=== PATIENT | female | born 2005 | race Caucasian/White ===

== ENCOUNTER 2025-06-27 22:37 | Observation (INO) | payer BC, SELFPAY ==
[2025-06-27 22:40] VITALS: BP 146/88; PULSE 88; RESP 16; TEMP 37.2; O2SAT 98; BMI 25.1
--- NOTE | 2025-06-27 22:54 | ED_ITS ---
HPI - Chest Pain General Date Seen: 06/27/25 <Sterling Mccabe DO - Last Filed: 06/27/25 23:59> Chief Complaint: Chest Pain <Sterling Mccabe DO - Last Filed: 06/27/25 23:59> Stated Complaint: chest pain <Sterling Mccabe DO - Last Filed: 06/27/25 23:59> Time Seen by Provider: 06/27/25 22:41 <Sterling Mccabe DO - Last Filed: 06/27/25 23:59> Source: patient <Sterling Mccabe DO - Last Filed: 06/27/25 23:59> Mode of arrival: ambulatory <Sterling Mccabe DO - Last Filed: 06/27/25 23:59> Limitations: no limitations <Sterling Mccabe DO - Last Filed: 06/27/25 23:59> History of Present Illness HPI narrative: Patient is a 19-year-old female presenting to emergency department for left mid axial rib pain around ribs 6 or 7. Pain 1st occurred Wednesday night around 03:00. She states she had sudden sharp pain that woke her up from sleep. Did not have any pain yesterday but then today has been having this pain all day. She states it has been gradually getting worse. States currently the pain is the worst it has been but does admit that she just got done with volleyball practice. States on Wednesday she did some moderate weightlifting and practice but she has not think she overly exerted herself. Has never had pain like this before. Pain is not radiate. Denies any tenderness to palpation but does state pain is worse when she rotates to the right or bends down. Does not have any pain with arm movement. Denies fevers, chills, midsternal chest pain, headache, vision changes, weakness, numbness, abdominal pain, back pain, dysuria, vaginal bleeding or discharge. Does states she has some shortness of breath associated with the pain. No history of blood clots. Denies recent travel, history of cancer, recent surgeries, hemoptysis, lower extremity swelling. Does states she is on control. <Sterling Menjivarleah - Last Filed: 06/27/25 23:59> Related Data Allergies/Adverse Reactions: Allergies Allergy/AdvReac Type Severity Reaction Status Date / Time No Known Drug Allergies Allergy Verified 06/28/25 00:18 <Sterling Mccabe DO - Last Filed: 06/27/25 23:59> Review of Systems Status of ROS Reports: 10 or more systems reviewed and unremarkable except as noted in History and below <Sterling Mccabe DO - Last Filed: 06/27/25 23:59> [facility] Social History: Social History Smoking Status: Never smoker Do you use any of these nicotine containing products: None Second hand tobacco smoke exposure: No How often do you have a drink containing alcohol: never How often do you have six or more drinks on one occasion: Never AUDIT-C Alcohol total score: 0 Non-prescribed substance use: denies use service: No <Sterling Mccabe DO - Last Filed: 06/27/25 23:59> Exam Narrative Exam Narrative: Const: Well-nourished, Well-developed, in mild distress Eyes: PERRL, no conjunctival injection, and symmetrical lids HENT: Atraumatic external nose and ears. Moist mucous membranes. Neck: Symmetric, trachea midline, No thyromegaly. CVS: RRR, No murmurs or gallops. Peripheral pulses 2+ and equal in all extremities RESP: Unlabored respiratory effort. Clear to auscultation bilaterally. GI: Nontender/Nondistended, No rebound or guarding. MSK:Extremities w/o deformity, Normal Active ROM, no tenderness to the mid axial region left Skin: Warm, Dry. No rashes or lesions. Neuro: Normal Muscle tone, No focal neurological deficits. Psych: Awake, Alert, & Oriented x3. Appropriate mood and affect. <Sterling Mccabe DO - Last Filed: 06/27/25 23:59> Const Vital Signs, click to edit/add: Vital Signs - 24 hr 06/27/25 22:40 Temperature 98.9 F Pulse Rate [Pulse Oximeter] 88 Respiratory Rate 16 Blood Pressure [Right Upper Arm] 146/88 H Pulse Oximetry 98 Oxygen Delivery Method Room Air <Sterling Mccabe DO - Last Filed: 06/27/25 23:59> Vital Signs - 24 hr 06/27/25 22:40 Temperature 98.9 F Pulse Rate [Pulse Oximeter] 88 Respiratory Rate 16 Blood Pressure [Right Upper Arm] 146/88 H Pulse Oximetry 98 Oxygen Delivery Method Room Air <Mary Soriano MD - Last Filed: 06/28/25 01:55> Course Course ED Course: Update: Dr. Soriano: I inherited care at the beginning of my shift. Patient awaiting results of CT angio. This does show bilateral pulmonary emboli, moderate load. There is some mild associated cardiac changes that would be suspicious for slight strain. This would not be a definitive way to test this. Some pulmonary necrosis noted in right lobe, associated with ischemic defect. Counseled patient on findings. She is on a combined oral contraceptive for menstrual management, this will need to be discontinued. She will need to transition on to a blood thinner, recommend Vazquez act. I do not Wanna start this at 1:00 a.m., as timing for her next dose will be quite tricky. Will start on a heparin drip, then transition on to Vazquez act. Discussed with hospitalist, she will assume care. At this time, there was no hypoxia, no signs of heart failure. Patient has not received lytics. Will need echo and venous Doppler ultrasounds of legs. Would recommend progesterone only OCP at discharge. Hospitalist to assume care. <Mary Soriano MD - Last Filed: 06/28/25 01:55> Vital Signs Vital signs: Initial Vital Signs Temperature 98.9 F 06/27/25 22:40 Temperature Source Temporal Artery Scan 06/27/25 22:40 Pulse Rate 88 06/27/25 22:40 Pulse Rhythm Regular 06/27/25 22:40 Respiratory Rate 16 06/27/25 22:40 Blood Pressure 146/88 H 06/27/25 22:40 Blood Pressure Mean 107 H 06/27/25 22:40 Blood Pressure Position Sitting 06/27/25 22:40 Pulse Oximetry 98 06/27/25 22:40 Oxygen Delivery Method Room Air 06/27/25 22:40 Vital Signs Temperature 98.9 F 06/27/25 22:40 Pulse Rate 88 06/27/25 22:40 Respiratory Rate 16 06/27/25 22:40 Blood Pressure 146/88 H 06/27/25 22:40 Pulse Oximetry 98 06/27/25 22:40 Oxygen Delivery Method Room Air 06/27/25 22:40 Temperature 98.9 F 06/27/25 22:40 Pulse Rate 88 06/27/25 22:40 Respiratory Rate 16 06/27/25 22:40 Blood Pressure 146/88 H 06/27/25 22:40 Pulse Oximetry 98 06/27/25 22:40 Oxygen Delivery Method Room Air 06/27/25 22:40 <Sterling Mccabe DO - Last Filed: 06/27/25 23:59> Initial Vital Signs Temperature 98.9 F 06/27/25 22:40 Temperature Source Temporal Artery Scan 06/27/25 22:40 Pulse Rate 88 06/27/25 22:40 Pulse Rhythm Regular 06/27/25 22:40 Respiratory Rate 16 06/27/25 22:40 Blood Pressure 146/88 H 06/27/25 22:40 Blood Pressure Mean 107 H 06/27/25 22:40 Blood Pressure Position Sitting 06/27/25 22:40 Pulse Oximetry 98 06/27/25 22:40 Oxygen Delivery Method Room Air 06/27/25 22:40 Vital Signs Temperature 98.9 F 06/27/25 22:40 Pulse Rate 88 06/27/25 22:40 Respiratory Rate 16 06/27/25 22:40 Blood Pressure 146/88 H 06/27/25 22:40 Pulse Oximetry 98 06/27/25 22:40 Oxygen Delivery Method Room Air 06/27/25 22:40 Temperature 98.9 F 06/27/25 22:40 Pulse Rate 88 06/27/25 22:40 Respiratory Rate 16 06/27/25 22:40 Blood Pressure 146/88 H 06/27/25 22:40 Pulse Oximetry 98 06/27/25 22:40 Oxygen Delivery Method Room Air 06/27/25 22:40 <Mary Soriano MD - Last Filed: 06/28/25 01:55> MDM - Chest Pain MDM Narrative Medical decision making narrative: Patient is a 19-year-old female presenting for left-sided mid axial chest pain. The differential diagnosis of chest pain is broad and includes common etiologies such as musculoskeletal strain, GERD, pneumonia, etc. More serious etiologies considered include PE, coronary artery disease, pneumothorax, aortic dissection, aortic aneurysm. She has a control so cannot be perked out. D-dimer ordered. Will order EKG troponin to look for cardiac abnormalities as this is on left side of her chest. Will order chest x-ray to look for signs of pneumonia or pneumothorax. She is otherwise appearing well my concern for or dissection or aortic aneurysm is low. Will order CBC, BMP, magnesium, viral swabs also. White count elevated at 15.80. Chest x-ray reviewed by myself and the radiologist shows an opacity left lower lung some consistent with the patient's pain is. This could be a pneumonia. Considering the elevated white blood cell count is very well could be pneumonia. D-dimer came back quite elevated at 4.67. Due to this I cannot use years criteria to rule out a PE. CTA will be ordered. <Sterling Mccabe DO - Last Filed: 06/27/25 23:59> Lab Data Attestation: I reviewed the patient's lab results. <Mary Soriano MD - Last Filed: 06/28/25 01:55> Labs: Lab Results 06/27/25 06/27/25 Range/Units 22:57 23:05 WBC 15.80 H (4.50-11.00) K/uL RBC 4.23 (4.00-5.20) m/uL Hgb 13.3 (12.0-16.0) gm/dL Hct 39.9 (33.0-51.0) % MCV 94 (80-100) fL MCH 31 (26-34) pg MCHC 33 (32-36) gm/dL RDW Coeff of Calvin 12.2 (11.5-15.5) % Plt Count 274 (140-440) K/uL Neut % (Auto) 81.5 H (42.0-72.0) % Lymph % (Auto) 8.2 L (20-44) % [place] % (Auto) 8.9 (0.0-11.0) % Eos % (Auto) 0.0 (0.0-7.0) % Baso % (Auto) 0.3 (0.0-3.0) % Neut # (Auto) 12.90 H (1.7-7.0) K/uL Lymph # (Auto) 1.30 (0.90-2.90) K/uL [place] # (Auto) 1.40 H (0.00-0.90) K/UL Eos # (Auto) 0.00 (0.00-0.50) K/uL Baso # (Auto) 0.00 (0.00-0.30) K/uL Abs Immat Gran (auto) 0.20 (0.00-0.30) K/uL Imm/Tot Granulo (auto) 1.1 % D-Dimer Quant (PE/DVT) 4.67 H (0.00-0.50) ug/ml Sodium 137 (135-149) mmol/L Potassium 4.7 (3.6-5.1) mmol/L Chloride 104 (96-114) mmol/L Carbon Dioxide 23 (20-32) mmol/L Anion Gap 10 (7-15) mEq/L BUN 19 (5-24) mg/dL Creatinine 1.1 (0.5-1.5) mg/dL Estimated Creat Clear 91.18 Estimated GFR 74 ml/min Glucose 92 (60-115) mg/dL Calcium 9.6 (8.4-10.6) mg/dL Magnesium 1.9 (1.5-2.6) mg/dL HCG, Qual Negative (Negative) SARS-CoV-2 (PCR) Negative SARS-CoV-2 (Negative) Influenza Type A (PCR) Negative PCR FLU A (Negative) Influenza Type B (PCR) Negative PCR FLU B (Negative) RSV (PCR) Negative PCR RSV (Negative) POC Troponin I 0.01 (0.01-0.04) ng/ml <Sterling Mccabe, DO - Last Filed: 06/27/25 23:59> Lab Results 06/27/25 06/27/25 Range/Units 22:57 23:05 WBC 15.80 H (4.50-11.00) K/uL RBC 4.23 (4.00-5.20) m/uL Hgb 13.3 (12.0-16.0) gm/dL Hct 39.9 (33.0-51.0) % MCV 94 (80-100) fL MCH 31 (26-34) pg MCHC 33 (32-36) gm/dL RDW Coeff of Calvin 12.2 (11.5-15.5) % Plt Count 274 (140-440) K/uL Neut % (Auto) 81.5 H (42.0-72.0) % Lymph % (Auto) 8.2 L (20-44) % [place] % (Auto) 8.9 (0.0-11.0) % Eos % (Auto) 0.0 (0.0-7.0) % Baso % (Auto) 0.3 (0.0-3.0) % Neut # (Auto) 12.90 H (1.7-7.0) K/uL Lymph # (Auto) 1.30 (0.90-2.90) K/uL [place] # (Auto) 1.40 H (0.00-0.90) K/UL Eos # (Auto) 0.00 (0.00-0.50) K/uL Baso # (Auto) 0.00 (0.00-0.30) K/uL Abs Immat Gran (auto) 0.20 (0.00-0.30) K/uL Imm/Tot Granulo (auto) 1.1 % D-Dimer Quant (PE/DVT) 4.67 H (0.00-0.50) ug/ml Sodium 137 (135-149) mmol/L Potassium 4.7 (3.6-5.1) mmol/L Chloride 104 (96-114) mmol/L Carbon Dioxide 23 (20-32) mmol/L Anion Gap 10 (7-15) mEq/L BUN 19 (5-24) mg/dL Creatinine 1.1 (0.5-1.5) mg/dL Estimated Creat Clear 91.18 Estimated GFR 74 ml/min Glucose 92 (60-115) mg/dL Calcium 9.6 (8.4-10.6) mg/dL Magnesium 1.9 (1.5-2.6) mg/dL HCG, Qual Negative (Negative) SARS-CoV-2 (PCR) Negative SARS-CoV-2 (Negative) Influenza Type A (PCR) Negative PCR FLU A (Negative) Influenza Type B (PCR) Negative PCR FLU B (Negative) RSV (PCR) Negative PCR RSV (Negative) POC Troponin I 0.01 (0.01-0.04) ng/ml <Mary Soriano MD - Last Filed: 06/28/25 01:55> Imaging Data Chest x-ray: Attestation: I have reviewed the pertinent imaging results. <Sterling Mccabe DO - Last Filed: 06/27/25 23:59> Radiologist's impression: Small focal airspace opacity in the posterior left lung base may represent atelectasis or infiltrate. Dictated by Julissa Lechuga MD @ 06/27/2025 11:17:06 PM <Sterling Mccabe DO - Last Filed: 06/27/25 23:59> CT scan - chest: Attestation: I have reviewed the pertinent imaging results. <Mary Soriano MD - Last Filed: 06/28/25 01:55> My impression: Area of necrosis right lower lobe, bilateral pulmonary emboli, left mid and right lower. <Mary Soriano MD - Last Filed: 06/28/25 01:55> Radiologist's impression: Impression: Examination is positive for bilateral pulmonary emboli, overall moderate clot burden. There are findings of developing left lung base pulmonary infarct. Imaging findings are indeterminate for right heart strain. Findings were communicated by telephone to Dr. Soriano at 0034 on 06/28/2025. Please note that all CT scans at this facility use dose modulation, iterative reconstruction, and/or weight-based dosing when appropriate to reduce radiation dose to as low as reasonably achievable. Dictated by Charlie Ackerman MD @ 06/28/2025 12:37:09 AM <Mary Soriano MD - Last Filed: 06/28/25 01:55> ECG Data Attestation: I personally reviewed and interpreted this ECG as follows: <Sterling Mccabe DO - Last Filed: 06/27/25 23:59> Prior ECG tracings: not available for review <Sterling Mccabe DO - Last Filed: 06/27/25 23:59> Interpretation: Normal sinus rhythm with a rate 75 beats per minute, normal intervals, normal axis, no ST or T-wave abnormalities. <Sterling Mccabe DO - Last Filed: 06/27/25 23:59> Discharge Plan Discharge Clinical Impression: Bilateral pulmonary embolism <Sterling Mccabe DO - Last Filed: 06/27/25 23:59> Patient Disposition: Admitted As Observation <Sterling Mccabe DO - Last Filed: 06/27/25 23:59>
--- NOTE | 2025-06-27 22:57 | CRLHL7_ITS ---
For Patients: As a result of the Century Cures Act, medical imaging exams and procedure reports are released immediately into your electronic medical record. You may view this report before your referring provider. If you have questions, please contact your health care provider. INDICATION: Chest pain. TECHNIQUE: Chest 2 view. COMPARISON: None. FINDINGS: Cardiovascular: Heart size and pulmonary vasculature are within normal limits. Lungs and pleural spaces: There is a small focal airspace opacity in the posterior left lung base. No sign of pleural effusion. No pneumothorax identified. Bones and soft tissues: No significant findings. IMPRESSION: Small focal airspace opacity in the posterior left lung base may represent atelectasis or infiltrate. Dictated by Julissa Lechuga MD @ 06/27/2025 11:17:06 PM (Electronically Signed)
[2025-06-27 23:27] LABS: Troponin, Point-of-Care* 0.01 ng/ml (0.01-0.04)
[2025-06-27 23:30] LABS: Hematocrit* 39.9 % (33.0-51.0); Hemoglobin* 13.3 gm/dL (12.0-16.0); Immature Granulocytes Pct Auto 1.1 %; Lymphocytes Absolute Auto 1.30 K/uL (0.90-2.90); Mean Corpuscular HGB Conc 33 gm/dL (32-36); Mean Corpuscular Hemoglobin 31 pg (26-34); Mean Corpuscular Volume 94 fL (80-100); RDW Coefficient of Variation % 12.2 % (11.5-15.5); Red Blood Count* 4.23 m/uL (4.00-5.20); White Blood Count* 15.80 K/uL (4.50-11.00)
[2025-06-27 23:34] LABS: Immature Granulocytes Abs Auto 0.20 K/uL (0.00-0.30); Slide Review Reflex No
[2025-06-27 23:40] LABS: Chloride* 104 mmol/L (96-114); Sodium* 137 mmol/L (135-149)
[2025-06-27 23:41] LABS: HCG Qualitative Serum* Negative (Negative); Potassium* 4.7 mmol/L (3.6-5.1)
[2025-06-27 23:43] LABS: Anion Gap 10 mEq/L (7-15); Blood Urea Nitrogen* 19 mg/dL (5-24); Carbon Dioxide* 23 mmol/L (20-32); Creatinine* 1.1 mg/dL (0.5-1.5); Est. Creatinine Clearance* 91.18; Estimated Glomerular Filt Rate 74 ml/min
[2025-06-27 23:44] LABS: Calcium* 9.6 mg/dL (8.4-10.6); Glucose* 92 mg/dL (60-115)
[2025-06-27 23:51] LABS: D Dimer Quantitative* 4.67 ug/ml (0.00-0.50)
[2025-06-27 23:54] VITALS: PULSE 72; RESP 27; O2SAT 100
[2025-06-28] VITALS (15 sets, daily range): BP systolic 126–141; BP diastolic 71–86; PULSE 73–84; RESP 16–28; TEMP 36.9–37.1; O2SAT 97–100
[2025-06-28 00:04] LABS: PCR FLU A Negative PCR FLU A (Negative); PCR FLU B Negative PCR FLU B (Negative); PCR RSV Negative PCR RSV (Negative); SARS PCR* Negative SARS-CoV-2 (Negative)
--- NOTE | 2025-06-28 01:37 | W.PM.THH&P_ITS ---
Telehealth- H&P: HPI History of Present Illness Date Seen: 06/28/25 Chief complaint: chest pain Narrative: Linda Sargent is seen as an Interactive Telehealth visit. Linda Sargent is a 19 year old female With no significant past medical history currently on a combined oral contraceptive pill now presents to the emergency department with left-sided rib pain. Pain initially began 3 days prior to admission with sudden onset sharp pain 10 out of 10 intensity that awakened her from her sleep at 3am.Patient states she took Advil. Did not note any pain again until the morning of admission. She states she woke up and took Advil for the pain 1 through her day as well as her volleyball game however noted pleuritic chest pain and noted pain with movement. She notes ongoing pain today that has gradually worsened.She denies any palpitations. She denies any nausea or vomiting. She denies lightheadedness or dizziness. She denies any diarrhea or constipation. No presyncopal episodes. In the emergency department, she was found to have a WBC count of 15.8, hemoglobin 13.3, hematocrit 39.9, platelet count 274. Sodium of 137, potassium of 4.7, chloride of 104, BUN of 19, creatinine 1.1. hCG was negative. Influenza A, B, RSV were negative. COVID was negative. [id number] troponin 0.01. Initial chest x-ray with small focal airspace disease in the posterior left lung base may represent atelectasis or infiltrate. CTA chest positive for bilateral pulmonary embolism moderate clot burden. Also noted were developing left lung base pulmonary infarct. Indeterminant findings for right heart strain. Bilateral pulmonary emboli involving the second order of the distal branch vessels. Given bilateral pulmonary emboli with moderate clot burden and chest pain patient was subsequently admitted for further management. She was given heparin bolus in the emergency department. Review of Systems Status of ROS: Reports: 10 or more systems reviewed and unremarkable except as noted in History and below [facility] Social History Smoking Status: Never smoker Do you use any of these nicotine containing products: None Second hand tobacco smoke exposure: No How often do you have a drink containing alcohol: never How often do you have six or more drinks on one occasion: Never AUDIT-C Alcohol total score: 0 Non-prescribed substance use: denies use service: No Meds Home Medications and Allergies Allergies Allergy/AdvReac Type Severity Reaction Status Date / Time No Known Drug Allergies Allergy Verified 06/28/25 00:18 Exam Narrative Exam Narrative: Physical Exam GENERAL: ?vital signs reviewed, well developed and nourished, in no distress HEENT: pupils are equal round and reactive to light, extraocular movements are grossly within normal limits and oral mucosa is moist. NECK: Supple without lymphadenopathy or thyromegaly according to nursing staff examination observation HEART: Regular rate and rhythm without any rubs, murmurs, or gallops. LUNGS: Clear to auscultation bilaterally with good air movement throughout, shallow breaths ABDOMEN: Observation from nurse assisted exam, abdomen appears soft, nontender, and nondistended with Positive bowel sounds noted. EXTREMITIES: Strength and sensation is observed to be grossly within normal limits in the upper and lower extremities.? No focal strength deficit is observed. SKIN:? Observed warm and dry with color normal Const Vital Signs, click to edit/add: Vital Signs - 24 hr 06/27/25 22:40 Temperature 98.9 F Pulse Rate [Pulse Oximeter] 88 Respiratory Rate 16 Blood Pressure [Right Upper Arm] 146/88 H Pulse Oximetry 98 Oxygen Delivery Method Room Air Hospitalist - H&P: Result Labs Labs: Short CBC 06/27/25 Range/Units 23:05 WBC 15.80 H (4.50-11.00) K/uL Hgb 13.3 (12.0-16.0) gm/dL Hct 39.9 (33.0-51.0) % Plt Count 274 (140-440) K/uL BMP 06/27/25 23:05 Sodium 137 Potassium 4.7 Chloride 104 Carbon Dioxide 23 BUN 19 Creatinine 1.1 Glucose [address] scan - chest: Radiologist's impression: Examination is positive for bilateral pulmonary emboli, overall moderate clot burden. There are findings of developing left lung base pulmonary infarct. Imaging findings are indeterminate for right heart strain. Assessment and Plan Assessment and plan (1) Bilateral pulmonary embolism: Problem comment: 06/28/25 diagnosed Status: Acute (2) Oral contraceptive use: Status: Acute (3) Chest pain: Status: Acute Plan 19-year-old female with no significant past medical history currently on OCP now presents with bilateral pulmonary emboli. Bilateral pulmonary emboli intermediate risk Suspect secondary to OCP use Full workup after treatment anticoagulation and follow-up with hematology onco logy Initiated on heparin drip Check 2D echocardiogram given RV strain was indeterminant on CT repeat trop, BNP in the AM Continue to monitor vitals Telemetry Transition to DOAC in a.m. if continues to remain stable DVT prophylaxis: On full dose heparin CODE STATUS full code Telehealth: Statement Statement Telehealth Visit: Today's History and Physical is provided via interactive telehealth by Val Dalton MD.? Patient is located at [facility] Provider is located at [facility] Nursing staff assisted with the patient's exam. The visit being done today meets criteria for a telehealth visit and the patient or patient?s parent/guardian is aware the visit is a telehealth visit. Camera Start Time: 02:45 Camera End Time: 03:12
[2025-06-28 01:56] LABS: INR 0.96 (0.91-1.10); Prothrombin Time 13.6 Seconds
[2025-06-28] MEDS: HEPARIN 25,000 UNIT/500 ML BAG 29 UNIT IV (02:00)
[2025-06-28] MEDS: HEPARIN 5,000 UNIT/0.5 ML INJ 6500 UNIT IVP (02:01)
[2025-06-28] MEDS: HYDROCODONE-ACETAMIN 5-325 MG 1 TAB PO (02:05)
--- NOTE | 2025-06-28 07:26 | PC.NURSE ---
Pt arrived to the unit @ 0211. Verified heparin drip rate upon admission with VIBHA Arenas. AxOx3, pleasant, and cooperative with cares. LSCTA on RA. VSS. Indep in room. Pt able to rest for a majority of shift after admission. Denies CP/Nausea/Dizziness. Pt reports SOB with deep inhales that increase L sided rib pain. Call light within reach. PTT redraw at 0800 today.
[2025-06-28] MEDS: SODIUM CHLORIDE 0.9 % (FLUSH) 10 ML SYRINGE 5 ML IVF (08:36)
[2025-06-28] MEDS: APIXABAN 5 MG TABLET 10 MG PO (08:36)
[2025-06-28 09:03] LABS: NT Pro B Type NatriureticPept* 256 pg/mL (See Note)
--- NOTE | 2025-06-28 11:00 | CRLHL7_ITS ---
For Patients: As a result of the Century Cures Act, medical imaging exams and procedure reports are released immediately into your electronic medical record. You may view this report before your referring provider. If you have questions, please contact your health care provider. INDICATION: bilateral PE COMPARISON: none TECHNIQUE: A compression venous ultrasound exam was performed of both lower extremities using joseph scale imaging, color Doppler and spectral Doppler analysis. FINDINGS: Sonographic imaging of the lower extremities demonstrates normal compressibility and color Doppler venous blood flow within the common femoral, deep femoral, and proximal greater saphenous veins. Within the thighs the femoral veins are patent and compressible. At a lower level the popliteal and posterior tibial veins also show normal compressibility and color Doppler venous blood flow. IMPRESSION: Normal venous ultrasound exam. No evidence of deep vein thrombosis within either the left or right lower extremity. Dictated by Gabe Mccoy MD @ 06/28/2025 12:01:11 PM (Electronically Signed)
--- NOTE | 2025-06-28 12:55 | PM.DS1 ---
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 Imaging in the ER revealed bilateral PEs with moderate burden. Heparin drip initiated and she was admitted to the hospital. No recent illnesses or extensive travel, no recent surgery, no family history of blood clots. Notably on OCPs. Vital signs remained reassuring, bilateral lower extremity ultrasounds negative for DVT. TTE obtained with reassuring findings: Final Impressions: 1. Normal left ventricular size, normal wall thickness, normal global systolic function, calculated EF of 66 %. 2. Normal diastolic function. 3. Right ventricular cavity size is mildly enlarged, global systolic RV function is normal. 4. The mitral valve is normal, mild mitral regurgitation. 5. Mild biatrial enlargement. 6. The inferior vena cava is normal sized, respiratory size variation greater than 50%. 7. No pericardial effusion. Transitioned to oral Eliquis from heparin on 06/28/2025 and medically appropriate for discharge home with close PCP follow-up on 06/28/25. Mother updated by phone, questions answered. Status at Discharge Functional status at discharge: independent ambulation Overall status at discharge: patient is progressing back to baseline Time Spent with Patient Time attestation: Total time spent providing and/or coordinating discharge services: Time spent: Greater than 30 minutes Exam Narrative: Exam Narrative: GEN: Alert HEENT: EOMIs bilaterally, no scleral icterus CV: RRR, No concerning murmurs or rubs R: LCTA bilaterally without concerning wheezing. Faint bibasilar rales that improve after sitting up Ext: wwp, no concerning edema Skin: No concerning skin lesions or rashes on exposed skin Neuro: Nonfocal Psych: Appropriate Const: Vital Signs, click to edit/add: Vital Signs - 24 hr 06/27/25 22:40 06/27/25 23:54 06/28/25 00:00 Temperature 98.9 F Pulse Rate 72 75 Pulse Rate [Pulse Oximeter] 88 Respiratory Rate 16 27 H 24 Blood Pressure Blood Pressure [Ri ght Arm] Blood Pressure [Ri ght Upper Arm] 146/88 H Pulse Oximetry 98 100 99 Oxygen Delivery Me thod Room Air 06/28/25 00:57 06/28/25 00:59 06/28/25 01:00 Temperature Pulse Rate 84 78 78 Pulse Rate [Pulse Oximeter] Respiratory Rate 18 16 21 Blood Pressure 141/81 H Blood Pressure [Ri ght Arm] Blood Pressure [Ri ght Upper Arm] Pulse Oximetry 100 98 98 Oxygen Delivery Me thod 06/28/25 01:15 06/28/25 01:30 06/28/25 01:45 Temperature Pulse Rate 73 77 74 Pulse Rate [Pulse Oximeter] Respiratory Rate 24 18 17 Blood Pressure Blood Pressure [Ri ght Arm] Blood Pressure [Ri ght Upper Arm] Pulse Oximetry 99 100 98 Oxygen Delivery Me thod 06/28/25 02:00 06/28/25 03:56 06/28/25 04:25 Temperature 98.7 F Pulse Rate 73 Pulse Rate [Pulse Oximeter] 79 Respiratory Rate 28 H 18 Blood Pressure Blood Pressure [Ri ght Arm] 140/86 H Blood Pressure [Ri ght Upper Arm] Pulse Oximetry 98 100 Oxygen Delivery Me thod Room Air Room Air 06/28/25 04:51 06/28/25 07:37 06/28/25 08:35 Temperature 98.7 F Pulse Rate 79 73 Pulse Rate [Pulse Oximeter] 77 Respiratory Rate 16 Blood Pressure Blood Pressure [Ri ght Arm] 132/71 Blood Pressure [Ri ght Upper Arm] Pulse Oximetry 100 Oxygen Delivery Me thod Room Air 06/28/25 12:10 Temperature 98.8 F Pulse Rate Pulse Rate [Pulse Oximeter] 75 Respiratory Rate 18 Blood Pressure Blood Pressure [Ri ght Arm] 134/71 Blood Pressure [Ri ght Upper Arm] Pulse Oximetry 97 Oxygen Delivery Me thod Room Air DS: Data Data Completed and Pending Labs on day of discharge: Labs from last 24 hours 06/28/25 06/27/25 06/27/25 08:20 23:05 22:57 WBC 15.80 H RBC 4.23 Hgb 13.3 Hct 39.9 MCV 94 MCH 31 MCHC 33 RDW Coeff of Calvin 12.2 Plt Count 274 Neut % (Auto) 81.5 H Lymph % (Auto) 8.2 L Brooke % (Auto) 8.9 Eos % (Auto) 0.0 Baso % (Auto) 0.3 Neut # (Auto) 12.90 H Lymph # (Auto) 1.30 Brooke # (Auto) 1.40 H Eos # (Auto) 0.00 Baso # (Auto) 0.00 Abs Immat Gran (auto) 0.20 Imm/Tot Granulo (auto) 1.1 INR 0.96 APTT 59 H 23 D-Dimer Quant (PE/DVT) 4.67 H Sodium 137 Potassium 4.7 Chloride 104 Carbon Dioxide 23 Anion Gap 10 BUN 19 Creatinine 1.1 Estimated Creat Clear 91.18 Estimated GFR 74 Glucose 92 Calcium 9.6 Magnesium 1.9 Troponin I < 0.01 NT-Pro-B Natriuret Pep 256 HCG, Qual Negative SARS-CoV-2 (PCR) Negative SARS-CoV-2 Influenza Type A (PCR) Negative PCR FLU A Influenza Type B (PCR) Negative PCR FLU B RSV (PCR) Negative PCR RSV POC Troponin I 0.01 Discharge Plan Discharge Disposition: Home, Self-Care Date of Admission: 06/28/25 02:14 Attending Provider on Discharge: Mariaa Liriano Primary Care Provider: Provider,Not a Local Condition: Improved Anticipated Discharge Date/Time: 06/28/25 14:20 Discharge Medications: New Eliquis DVT-PE Treat 30D Start 5 mg (74 tabs) tablets,dose pack See Rx Instructions .ROUTE .COMPLEX Qty: 74 0RF Rx Instructions: orally per package directions - needs 10mg BID for total of 7 days, starts 5mg po BID on JULY 05 Discontinued norethindrone-e.estradiol-iron [Blisovi Fe 10/09 (28)] 1 mg-20 mcg (21)/75 mg (7) tablet 1 tab PO DAILY Discharge Orders: Discharge Order (Routine); Ordered 06/28/25 Ordered By: Hermelinda Martinez Patient Education: Apixaban (By mouth), Pulmonary Embolism (DC) Additional Instructions: STOP control pills. START Eliquis (10mg twice/day for total of 7 days, on WEDNESDAY, 07/05 you start 5mg twice/day). I sent a month of this to [facility] - your new PCP will refill and you'll take this for 3-6 months. Consider a Hematology followup pending thoughrs of your new PCP. Activity Level: No strenuous activity Discharge Diet: Regular Follow Up Appointments: Violet Malik MD [Referring, Family Practice] - 07/03/25 12:30 pm Referral Note: [facility] for hospital follow-up. 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 Imaging in the ER revealed bilateral PEs with moderate burden. Heparin drip initiated and she was admitted to the hospital. No recent illnesses or extensive travel, no recent surgery, no family history of blood clots. Notably on OCPs. Vital signs remained reassuring, bilateral lower extremity ultrasounds negative for DVT. TTE obtained with reassuring findings: Final Impressions: 1. Normal left ventricular size, normal wall thickness, normal global systolic function, calculated EF of 66 %. 2. Normal diastolic function. 3. Right ventricular cavity size is mildly enlarged, global systolic RV function is normal. 4. The mitral valve is normal, mild mitral regurgitation. 5. Mild biatrial enlargement. 6. The inferior vena cava is normal sized, respiratory size variation greater than 50%. 7. No pericardial effusion. Transitioned to oral Eliquis from heparin on 06/28/2025 and medically appropriate for discharge home with close PCP follow-up on 06/28/25. Mother updated by phone, questions answered. DS: Data Data Completed and Pending Completed studies during hospitalization: Echocardiogram done 06/28/2025 reveals: Normal left ventricular size, normal wall thickness, normal global systolic function, EF 66%. Normal diastolic function. Right ventricular cavity size is mildly enlarged, global systolic RV function is normal. The mitral valve is normal. Only mild mitral regurgitation noted. Mild biatrial enlargement. The inferior vena cava is normal sized, respiratory size variation was noted to be greater than 50%. No evidence of failure. No pericardial effusion. Specifically right ventricular dilation, hypokinesis or septal flattening were not noted. Paradoxical motion, elevated systolic pressures in the pulmonary artery were also not noted. Discharge Plan Discharge Disposition: Home, Self-Care Date of Admission: 06/28/25 02:14 Attending Provider on Discharge: Mariaa Liriano Primary Care Provider: Provider,Not a Local Condition: Improved Anticipated Discharge Date/Time: 06/28/25 14:20 Discharge Medications: New Eliquis DVT-PE Treat 30D Start 5 mg (74 tabs) tablets,dose pack See Rx Instructions .ROUTE .COMPLEX Qty: 74 0RF Rx Instructions: orally per package directions - needs 10mg BID for total of 7 days, starts 5mg po BID on JULY 05 Discontinued norethindrone-e.estradiol-iron [Blisovi Fe 10/09 (28)] 1 mg-20 mcg (21)/75 mg (7) tablet 1 tab PO DAILY Discharge Orders: Discharge Order (Routine); Ordered 06/28/25 Ordered By: Hermelinda Martinez Patient Education: Apixaban (By mouth), Pulmonary Embolism (DC) Additional Instructions: STOP control pills. START Eliquis (10mg twice/day for total of 7 days, on 07/05 you start 5mg twice/day). I sent a month of this to [facility] - your new PCP will refill and you'll take this for 3-6 months. Consider a Hematology followup pending thoughrs of your new PCP. Activity Level: No strenuous activity Discharge Diet: Regular Follow Up Appointments: Violet Malik MD [Referring, Family Practice] - 07/03/25 12:30 pm Referral Note: [facility] for hospital follow-up. Provider,Not a Local [Primary Care Provider, Family Practice] Referral Note: Forms: Patient Belongings, [employer] Info Instructions
[2025-06-28] MEDS: ACETAMINOPHEN 325 MG TABLET 650 MG PO (14:08)
--- NOTE | 2025-06-28 18:14 | PC.NURSE ---
Discharge - Pt alert, oriented, cooperative. Up independently in room, tolerating RA and regular diet/fluids. Pt reported pain 7/10 in L lower posterior ribs. Given medication per MAR with pt reporting mild improvement. RN provided education r/t medication and activity as well as follow up. Pt verbalized understanding. IV removed with catheter intact. Pt d/c to home via wheelchair to be transported by friend at approximately 1840.
--- NOTE | 2025-06-28 18:19 | PC.NURSE ---
Addendum : pt d/c'd from unit at approximately 3012
--- NOTE | 2025-06-28 23:57 | CRLHL7_ITS ---
For Patients: As a result of the Century Cures Act, medical imaging exams and procedure reports are released immediately into your electronic medical record. You may view this report before your referring provider. If you have questions, please contact your health care provider. Indication: Left-sided chest pain Technique: Postcontrast CTA of the chest following 95 mL Isovue 370 IV contrast. Axial MIP images obtained. Comparison: None Findings: Pulmonary arteries: Bilateral pulmonary emboli involving 2nd order and distal branch vessels greatest in the left lower lobe. Lungs: [id number] patchy consolidations compatible with developing infarct. Mediastinum: The right ventricle appears dilated but the IV septum remains bulging to the right. Lymph nodes: No gross lymphadenopathy. Upper abdomen: No acute abnormality appreciated. Soft tissues: No acute abnormality appreciated. Bones: No acute abnormality appreciated. Impression: Examination is positive for bilateral pulmonary emboli, overall moderate clot burden. There are findings of developing left lung base pulmonary infarct. Imaging findings are indeterminate for right heart strain. Findings were communicated by telephone to Dr. Soriano at 0034 on 06/28/2025. Please note that all CT scans at this facility use dose modulation, iterative reconstruction, and/or weight-based dosing when appropriate to reduce radiation dose to as low as reasonably achievable. Dictated by Charlie Ackerman MD @ 06/28/2025 12:37:09 AM (Electronically Signed)
== END 2025-06-28 17:40 | disposition home or self-care (01) ==
LOC: ED 06-28 01:55 → MEDSURG 06-28 02:15
PROVIDERS: Student in an Organized Health Care Education/Training Program; Admitting Provider Internal Medicine; Emergency Provider Family Medicine; Visit Provider Internal Medicine
DX: I26.99 Other pulmonary embolism without acute cor pulmonale (principal); Z30.41 Encounter for surveillance of contraceptive pills; R07.9 Chest pain, unspecified
CPT/HCPCS: 36415; 71046; 71275; 80048; 81001; 83735; 83880; 84484; 84703; 85025; 85379; 85610; 85730; 87631; 93005; 93306; 93970; 96374; 96376; 99284; 99285; A9270; G0378; J1644; Q9967